=== PATIENT | male | born 1955 | race Caucasian/White ===

== ENCOUNTER 2021-01-10 09:35 | Outpatient (CLI) | payer MEDICARE, MEDICAID, SELFPAY ==
--- NOTE | ~2021-01-10 | US_ITS ---
EXAMINATION: US carotid duplex BI DATE: 01/10/2021 10:51 INDICATION: Carotid occlusion TECHNIQUE: Grayscale, color Doppler, and pulsed Doppler images of the cervical carotid arteries were obtained. The degree of vessel stenosis is placed in one of the following categories: normal, <50%, 5 0-69%, >=70% but less than near-occlusion, near-occlusion, or total occlusion. Note that percent sten osis relative to normal distal artery lumen diameter is indirectly measured from velocity measurement s as described by Rashid, et al. Radiology 2003; 229:340-346. Notes: Normal: Peak systolic velocity <125 centimeters/sec and no plaque <50%. Peak systolic velocity <125 ( EDV <40; ICA/CCA PSV ratio <2.0; used these factors only a tandem lesions or low cardiac output or co ntralateral disease) 50-69 %: PSV 125-230 (EDV 40-100; ratio 2-4) >= 70% but less than near occlusion: PSV greater than 230 (EDV > 100; ratio> 4.0) Near Occlusion: PSV that is variable; markedly narrowed lumen Occlusion: Absent flow on color/spectral Doppler and no lumen on chavez scale. COMPARISON: None. FINDINGS: RIGHT: The right common carotid artery (CCA) peak systolic velocity (PSV) is 103 cm/s. The right internal ca rotid artery (ICA) PSV is 134 cm/s. The right ICA end-diastolic velocity (EDV) is 13.7 cm/s. The righ t ICA/CCA PSV ratio is 1.3. The external carotid artery (ECA) PSV is 189 cm/s. Right vertebral artery not visualized. LEFT: The left CCA PSV is 114 cm/s. The left ICA PSV is 92 cm/s. The left ICA EDV is 19 cm/s. The left ICA/ CCA PSV ratio is 0.8. The ECA PSV is 79 cm/s. There is antegrade flow in the left vertebral artery. IMPRESSION: 1. 50-69% stenosis in the right internal carotid artery by sonographic criteria. 2. Less than 50% stenosis in the left internal carotid artery by sonographic criteria. 3: Right vertebral artery not visualized, possibly occluded. Reviewed, dictated and finalized at location A. IMPRESSION: 1. 50-69% stenosis in the right internal carotid artery by sonographic criteria . 2. Less than 50% stenosis in the left internal carotid artery by sonographic cr iteria. 3: Right vertebral artery not visualized, possibly occluded.
== END 2021-01-10 09:36 | disposition home or self-care (01) ==
LOC: ANHIMG 09:40
PROVIDERS: PCP Physician Assistant; Visit Provider Physician Assistant
DX: I65.23 Occlusion and stenosis of bilateral carotid arteries (principal)
CPT/HCPCS: 93880

== ENCOUNTER 2021-02-09 08:00 | Outpatient (CLI) | payer MEDICARE, MEDICAID, SELFPAY ==
--- NOTE | ~2021-02-09 | CT_ITS ---
EXAMINATION: CTA brain carotid EXAM DATE: 02/09/2021 08:47 INDICATION: BI carotid artery stenosis. TECHNIQUE: Noncontrast head CT. Spiral CTA of the carotid arteries was performed with intravenous i njection 100 cc of Omnipaque 350. Axial, coronal, sagittal reformatted images reviewed. Additional r eformatted images created on dedicated 3-D workstation. NASCET comparable standard used to assess th e degree of arterial stenosis. Spiral CT angiogram cerebral arteries performed with the same intrave nous injection of contrast. Source images of the brain CTA transferred to dedicated workstation for 3 -D rotational image creation. Coronal, sagittal maximum intensity pixel images also reviewed. The d ose-length product (DLP) for this examination was 1685.83 mGy-cm. The exposure was tailored accordi ng to patient size, and iterative reconstruction (ASIR) was used as additional dose reduction techniq ue. There is no prior study for comparison. FINDINGS: There is large amount of noncalcified plaque in the right carotid bulb which is also dilate d more than typical up to 1.4 cm, with 50% stenosis by NASCET criteria. On the left there is mild art eriosclerosis with 0% stenosis. The left vertebral artery is dominant. There is mild to moderate bila teral carotid siphon arterial sclerosis with no more than mild stenosis. Both anterior cerebral arter ies supplied by the left A1 segment. There is a few millimeters dilation of the anterior communicating artery at the junction of the anter ior communicating artery and the left A2 segment, probably should be considered infundibulum rather t purcell aneurysm. No other regions of dilation identified. There is right-sided posterior communicating a rtery dominant posterior cerebral artery. There is no carotid or vertebral basilar arterial dissec tion or fibromuscular dysplasia. There is symmetric cerebral artery arborization. The sagittal, kelly sverse and sigmoid sinuses enhance normally, no venous sinus thrombosis. Internal cerebral veins also enhance normally. There is no acute intraparenchymal hemorrhage. No evidence of intraparenchymal brain mass lesion. N o evidence of acute infarction. There is no mass effect or midline shift. There is no obstructive hy drocephalus suspected. There are no extra-axial collections. Incidental Findings: Asymmetric fatty involution of the right submandibular gland compared to left. O sseous partial fusion of the C5-7 vertebral bodies and osteophyte extension to C4. Sternotomy wires. IMPRESSION: 1. Right carotid bulb 50% stenosis. Left carotid bulb plaque with 0% stenosis. 2. Anterior communicating-left A2 segment infundibulum. 3. No acute findings. Reviewed, dictated and finalized at location B.
[2021-02-09 08:30] LABS: Estimated Glomerular Filt Rate > 60
== END 2021-02-09 08:01 | disposition home or self-care (01) ==
LOC: ANHIMG 08:02
PROVIDERS: PCP Physician Assistant; Visit Provider Thoracic Surgery (Cardiothoracic Vascular Surgery)
DX: I65.23 Occlusion and stenosis of bilateral carotid arteries (principal)
CPT/HCPCS: 70496; 70498; Q9967

== ENCOUNTER 2022-04-17 06:52 | Emergency (ER) | payer MEDICARE, MEDICAID, SELFPAY ==
[2022-04-17] VITALS (39 sets, daily range): BP systolic 148–207; BP diastolic 85–152; PULSE 88–119; RESP 16–32; TEMP 36.7; O2SAT 76–99
--- NOTE | ~2022-04-17 | XR_ITS ---
EXAMINATION: XR chest 1V portable DATE: 04/17/2022 07:33 INDICATION: Shortness of breath TECHNIQUE: frontal view of the chest was obtained. COMPARISON: Chest radiograph dated 12/07/17 FINDINGS: Unchanged left apical pleural-parenchymal scarring. No new airspace opacities, pulmonary edema, pleur al effusion or pneumothorax. Heart size is normal. Median sternotomy wires and mediastinal surgical c lips are seen, likely from prior coronary artery bypass grafting. IMPRESSION: 1. No acute cardiopulmonary disease. Reviewed, dictated and finalized at location A.
[2022-04-17] MEDS: NITROGLYCERIN OINTMENT 1 INCH DOSE TRANSDERM (07:15)
[2022-04-17 07:24] LABS: Basophils Absolute Auto 0.1 K/mm3 (0.0-0.1); Basophils Percent Auto 0.5 % (0.2-1.2); Eosinophils Percent Auto 0.3 % (0-4.4); Hematocrit 52.2 % (42.0-52.0); Hemoglobin 18.8 g/dL (14.0-18.0); Immature Granulocyte Absolute 0.03 K/mm3 (0.00-0.031); Immature Granulocyte Percent A 0.3 % (0-0.5); Immature Platelet Fraction Pct 3.8 % (0.9-11.2); Lymphocytes Absolute Auto 1.33 K/mm3 (0.9-3.2); Lymphocytes Percent Auto 11.4 % (18.3-44.2); Mean Corpuscular Hemoglobin 34.2 pg (26-34); Mean Corpuscular Volume 95.1 fl (80-100); Mean Platelet Volume 9.6 fl (7.4-10.4); Monocytes Absolute Auto 1.2 K/mm3 (0.1-0.6); Monocytes Percent Auto 10.4 % (2.6-8.5); Neutrophils Percent Auto 77.1 % (45.5-73.1); Platelet Count Result 60 k/mm3 (150-375); Red Blood Count 5.49 M/mm3 (4.6-6.20); Red Cell Distribution Width 13.7 % (11.5-14.5); White Blood Count 11.7 K/mm3 (4.5-10.0)
[2022-04-17 07:31] LABS: Alveolar/Arterial O2 Gradient 245.4 mmHg; Base Excess ABG -0.2 mEq/l (+/-2.0); Carboxyhemoglobin 0.3 % THb (0-2.0); Fractional Inspired Oxygen 100 %; HCO3 ABG 19.4 mEq/l (22.0-26.0); Methemoglobin ABG 0.8 %THb (0-1.5); Oxygen Content ABG 28.3 %vol (16.0-22.0); Oxygen Saturation ABG 99.9 % (95.0-100.0); Oxyhemoglobin 98.3 % THb (90.0-100.0); PO2 ABG 444.5 mmHg (80.0-100.0); PO2 FiO2 Ratio Arterial Blood 4.45 %; Reduced Hemoglobin 0.6 %THb (0-5.0); Total Hemoglobin 19.7 g/dL (12.0-18.0)
[2022-04-17 07:38] LABS: Device NON-REBREATHER MASK; Modified Allen's Test Pass; PCO2 ABG 23.1 mmHg (35.0-45.0); Site Drawn RIGHT RADIAL; pH ABG 7.542 (7.350-7.450)
[2022-04-17 07:41] LABS: Alanine Aminotransferase 42 U/L (6-50); Albumin Level 4.3 g/dL (3.5-5.1); Alkaline Phosphatase 88 U/L (38-126); Anion Gap 11 mmol/L (8-16); Aspartate Amino Transferase 69 U/L (17-59); Bilirubin,Total 1.4 mg/dL (0.2-1.3); Blood Urea Nitrogen 13 mg/dL (9-20); Calcium 8.3 mg/dL (8.4-10.2); Carbon Dioxide 22 mmol/L (22-30); Chloride 102 mmol/L (98-107); Estimated CRCL calculation 71 ml/min; Estimated Glomerular Filt Rate > 60; Glucose 140 mg/dL (65-110); Potassium 3.8 mmol/L (3.4-5.0); Sodium 135 mmol/L (137-145)
[2022-04-17 07:55] LABS: NT Pro B Type Natriuretic Pept 54 pg/mL (5-100); Troponin I 0.015 ng/mL (0.000-0.034)
[2022-04-17 07:56] LABS: INR 3.7; Prothrombin Time 35.8 Seconds (11.1-14.7)
[2022-04-17] MEDS: METOPROLOL TARTRATE 25 MG TABLET PO (08:10)
--- NOTE | 2022-04-17 08:27 | ED.GENADULT ---
HPI - General Adult General Chief complaint: Chest Pain Stated complaint: Chest pain? reaction to nyquil? Time Seen by Provider: 04/17/22 07:00 History of Present Illness HPI narrative: Patient is a 67-year-old male who presents ER with shortness of breath. Reports she is having difficulty sleeping all night. Short of breath when laying back. Tried taking some NyQuil which did not help. No fevers or chills or sweats. No productive cough. He is unsure if he is having any sort of chest pain. Blood pressure here elevated above 200 mmHg. He does have history of hypertension. He has been taking his home blood pressure medication. She did not take this morning's. Pulse oximeter reading 76% on arrival. Placed on nonrebreather. Related Data Home Medications Medication Instructions Recorded Confirmed enalapril maleate 10 mg tablet 10 mg PO DAILY 07/29/19 07/29/19 fenofibrate nanocrystallized 145 145 mg PO DAILY 07/29/19 07/29/19 mg tablet hydrocodone 7.5 mg-acetaminophen 7.5 tablet PO TID 07/29/19 07/29/19 325 mg tablet metoprolol tartrate 25 mg tablet 25 mg PO BID 07/29/19 07/29/19 pantoprazole 40 mg tablet,delayed 40 mg PO DAILY 07/29/19 07/29/19 release simvastatin 20 mg tablet 20 mg PO DAILY 07/29/19 07/29/19 warfarin 3 mg tablet 2 mg PO DAILY 07/29/19 07/29/19 Allergies Allergy/AdvReac Type Severity Reaction Status Date / Time pregabalin [From Lyrica] Allergy Severe Swelling Verified 07/29/19 12:25 of Lip/Tongue/Throat Review of Systems Review of Systems: All systems reviewed & are unremarkable except as noted in HPI and below Constitutional: Constitutional: Denies chills, Denies fatigue and Denies fever(s) ENT: Denies nasal congestion and Denies sore throat Cardiovascular: Cardiovascular: Denies chest pain, Denies rapid heart rate and Denies radiating jaw, neck or arm pain Respiratory: Respiratory: Denies chest congestion, Reports cough, Reports dyspnea and Denies wheezing Gastrointestinal: Gastrointestinal: Denies abdominal pain, Denies nausea and Denies vomiting Neurologic: Denies syncope, Denies focal weakness and Denies numbness [facility] Past Medical History Medical History (Updated 04/17/22 @ 11:10 by Anil Griffin MD) Anxiety DVT (deep venous thrombosis) Hyperlipidemia Hypertension Peripheral vascular disease TIA (transient ischemic attack) Surgical History Surgical History (Updated 04/17/22 @ 08:31 by Anil Griffin MD) History of tonsillectomy S/P CABG x 4 Exam Narrative: GENERAL: Anxious-appearing, well-nourished, and in mild distress. HEAD: Normocephalic, atraumatic. EYES: PERRL and EOMI. ENT: Mucous membranes moist. CHEST: Clear to auscultation. No respiratory distress. HEART: Regular rate and rhythm. Normal peripheral pulses. ABDOMEN: Soft, nontender, nondistended. EXTREMITIES: Normal range of motion. No edema. SKIN: Warm, dry, no rash. NEURO: Alert and oriented x3. PSYCH: Normal mood and affect. Course Course Emergency Course: Patient resting comfortably. No hypoxia. Suspect patient actually had a panic attack and he reports that he feels he had one as well. He has been sleeping well and his been under stress. Recently broke up with his fianc?e. Will provide patient some antianxiety medication for home and recommend he follow-up with his PCP. Troponin negative x2. Vital Signs Vital signs: Vital Signs Temperature 98.0 F 04/17/22 06:57 Pulse Rate 118 H 04/17/22 06:57 Respiratory Rate 16 04/17/22 06:57 Blood Pressure 207/109 H 04/17/22 06:57 Pulse Oximetry 76 L 04/17/22 06:57 Oxygen Delivery Non-Rebreather Mask 04/17/22 06:57 Oxygen Flow Rate 15 04/17/22 06:57 Temperature 98.0 F 04/17/22 06:57 Pulse Rate 101 H 04/17/22 11:00 Respiratory Rate 20 04/17/22 11:00 Blood Pressure 163/97 H 04/17/22 10:46 Pulse Oximetry 98 04/17/22 11:00 Oxygen Delivery Nasal Cannula 04/17/22 08:15 Oxygen Flow Rate 2
[2022-04-17 08:31] LABS: SARS-CoV-2 RNA PCR Negative
[2022-04-17] MEDS: ENALAPRIL MALEATE 10 MG TABLET PO (08:43)
[2022-04-17 11:05] LABS: Troponin I 0.016 ng/mL (0.000-0.034)
== END 2022-04-17 11:33 | disposition home or self-care (01) ==
PROVIDERS: Emergency Provider Emergency Medicine; PCP Physician Assistant
DX: F41.9 Anxiety disorder, unspecified (principal); R07.9 Chest pain, unspecified; R06.02 Shortness of breath; I10 Essential (primary) hypertension; E78.5 Hyperlipidemia, unspecified; I73.9 Peripheral vascular disease, unspecified; Z86.73 Personal history of transient ischemic attack (TIA), and cerebral infarction without residual deficits; Z86.718 Personal history of other venous thrombosis and embolism; Z95.1 Presence of aortocoronary bypass graft; Z79.01 Long term (current) use of anticoagulants; Z79.891 Long term (current) use of opiate analgesic; Z20.822 Contact with and (suspected) exposure to COVID-19
CPT/HCPCS: 36415; 36600; 71045; 80053; 82375; 82805; 83050; 83880; 84484; 85025; 85055; 85610; 85730; 99284; A9270; C9803; U0003; U0005